=== PATIENT | male | born 1995 | race Caucasian/White ===

== ENCOUNTER 2024-06-02 22:35 | Emergency (ER) | payer OTHER ==
[2024-06-02 22:43] VITALS: BP 124/76; PULSE 78; RESP 18; TEMP 98.5; BMI 26.6
[2024-06-02] MEDS ORDERED: KETOROLAC TROMETHAMINE 30 MG/1 ML VIAL ONE (23:19)
[2024-06-02] MEDS: KETOROLAC TROMETHAMINE 30 MG/1 ML VIAL IM ONE (23:26)
== END 2024-06-03 00:52 | disposition home or self-care (01) ==
LOC: JER 22:35
DX: S69.92XA Unspecified injury of left wrist, hand and finger(s), initial encounter (principal); W50.0XXA Accidental hit or strike by another person, initial encounter; Y93.64 Activity, baseball
CPT/HCPCS: 73110-TC-LT-FY; 73130-TC-LT-FY; 99283-25